=== PATIENT | male | born 1985 | race Caucasian/White ===

== ENCOUNTER 2016-05-26 06:58 | Emergency (ER) | payer OTHER ==
[2016-05-26 07:17] VITALS: BMI 29.5
--- NOTE | 2016-05-26 07:54 | PDOC ---
History of Present Illness - General Chief Complaint: Rash Stated Complaint: ALLERGIC REACTION Time Seen by Provider: 05/26/16 07:43 History Source: Patient - History of Present Illness Initial Comments: 05/26/16 08:54 Mr. Horowitz is a 31-year-old male with past medical history of bipolar depression presenting to the ED today complaining of a rash on his scrotum 3 months. Patient states that the rash initially began on his butt. He saw dermatology at that time. It is now spread into his scrotum and his foreskin. Patient states that the rash is very itchy and painful. He is tried using permethrin, betamethasone, and mometasone with minimal relief. Patient states that there was no biopsy done of his rash. Patient denies history of STDs. Denies new sexual partners. Patient states that he has a new girlfriend has not had relations. Denies discharge from the penis, dysuria, hematuria, frequency. Patient denies fevers chills, cough, runny nose, chest pain, shortness of breath , nausea, vomiting, diarrhea. Past History - Past Medical History Allergies/Adverse Reactions: Allergies Allergy/AdvReac Type Severity Reaction Status Date / Time No Known Allergies Allergy Verified 05/26/16 07:07 Home Medications: Ambulatory Orders Betamethasone/Propylene Glyc [Betamethasone Dp Aug 0.05% Crm] 1 applic TP DAILY 05/26/16 Mometasone Furoate 0.1% Tp Lot [Elocon (Nf)] 1 applic NR DAILY 05/26/16 Permethrin 5% Topical Cream [Elimite -] 1 applic TP DAILY 05/26/16 Other medical history: denies - Psycho/Social/Smoking Cessation Hx Suicidal Ideation: No Smoking History: Never smoked *Physical Exam - Vital Signs Last Vital Signs Temp Pulse Resp BP Pulse Ox 98.5 F 74 18 121/75 97 05/26/16 07:08 05/26/16 07:08 05/26/16 07:08 05/26/16 07:08 05/26/16 07:08 - Physical Exam Comments: 05/26/16 08:55 GENERAL: Well developed, well nourished. Awake and alert. No acute distress. HEENT: Normocephalic, atraumatic. PERRLA, EOMI. No conjunctival pallor. Sclera are non- icteric. Moist mucous membranes. Oropharynx is clear. NECK: Supple. Full ROM. No JVD. Carotid pulses 2+ and symmetric, without bruits. No thyromegaly. No lymphadenopathy. CARDIOVASCULAR: Regular rate and rhythm. No murmurs, rubs, or gallops. Distal pulses are 2+ and symmetric. PULMONARY: No evidence of respiratory distress. Lungs clear to auscultation bilaterally. No wheezing, rales or rhonchi. ABDOMINAL: Soft. Non-tender. Non-distended. No rebound or guarding. No organomegaly. Normoactive bowel sounds. MUSCULOSKELETAL Normal range of motion at all joints. No bony deformities or tenderness. No CVA tenderness. EXTREMITIES: No cyanosis. No clubbing. No edema. No calf tenderness. SKIN: Papular rash along the scrotum, foreskin, b/l medial thighs. Excoriation present along some papules. No umbilications of the papules noted. Warm and dry. Normal capillary refill. No jaundice. NEUROLOGICAL: Alert, awake, appropriate. Cranial nerves 2-12 intact. No deficits to light touch and temperature in face, upper extremities and lower extremities. No motor deficits in the in face, upper extremities and lower extremities. Normoreflexic in the upper and lower extremities. Normal speech. Toes are down- going bilaterally. Gait is normal without ataxia. PSYCHIATRIC: Cooperative. Good eye contact. Appropriate mood and affect Medical Decision Making - Medical Decision Making 05/26/16 09:00 Mr. Horowitz is a 31-year-old male with past medical history of bipolar depression presenting to the ED with a rash of his genitalia 3 months. Given the distribution and look of the papules appears to be warty in nature. Patient is requesting STD testing this time. We'll do full STD panel. We'll refer back to dermatology. We'll also give Benadryl for the pruitits. 05/26/16 10:52 HIV testing is negative at this time. Pt. is reporting relief of his itching with Benadryl. Will discharge home with dermatology follow up. *DC/Admit/Observation/Transfer Diagnosis at time of Disposition: Warts, genital - Discharge Dispostion Admit: No - Referrals Referrals: Reshma Hinson MD [Staff Physician] - - Patient Instructions Printed Discharge Instructions: DI for Genital Warts Additional Instructions: Your rash is most likely genital warts. You were given benadryl today to help with the itching. We also did a full STD work up. Call back in 3 days for the results. You may need to come back to the ER to get the results as they are not always given over the phone. Follow up with your insights strategist Reshma Hinson. Her phone number is . You may need a skin biopsy at this time. You may continue to take benadryl before you go to bed to help with the itching and to help you sleep. Return to the ED if you develop new fevers or chills.
[2016-05-26] MEDS ORDERED: diphenhydrAMINE HCL 25 MG CAPSULE (FP) PO ONE ×2 (08:29→08:41)
[2016-05-26 09:33] LABS: HIV 1 & 2 AB NEGATIVE; HIV 1 AGp24 NEGATIVE
--- NOTE | 2016-05-26 09:42 | PDOC ---
*Physical Exam - Vital Signs Last Vital Signs Temp Pulse Resp BP Pulse Ox 98.5 F 74 18 121/75 97 05/26/16 07:08 05/26/16 07:08 05/26/16 07:08 05/26/16 07:08 05/26/16 07:08 ED Treatment Course - Medications Given in the ED: ED Medications Discontinued Medications Generic Name Dose Route Start Last Admin Trade Name Barbara PRN Reason Stop Dose Admin Diphenhydramine HCl 50 mg 05/26/16 08:29 05/26/16 08:45 Benadryl - PO 05/26/16 08:30 50 mg ONCE ONE Administration Medical Decision Making - Medical Decision Making 05/26/16 09:41 Patient seen and evaluated with the nurse practitioner. I agree with the overall evaluation, assessment, and management with the following summary of visit: 31-year-old male with no severe past medical history presents with progressive perineal rash over the last 3 months, not responding to steroid creams prescribed by dermatology. Symptoms seemed to have started after having intercourse with his ex-girlfriend after she took a trip. Exam appears to be most consistent with genital warts, will require further dermatology evaluation, we'll perform full STI workup. *DC/Admit/Observation/Transfer Diagnosis at time of Disposition: Warts, genital - Referrals Referrals: Reshma Hinson MD [Staff Physician] - - Patient Instructions Printed Discharge Instructions: DI for Genital Warts Additional Instructions: Your rash is most likely genital warts. You were given benadryl today to help with the itching. We also did a full STD work up. Call back in 3 days for the results. You may need to come back to the ER to get the results as they are not always given over the phone. Follow up with your coning machine operator Reshma Hinson. Her phone number is . You may continue to take benadryl before you go to bed to help with the itching and to help you sleep. Return to the ED if you develop new fevers or chills. - Post Discharge Activity
[2016-05-26 09:46] LABS: URINE APPEARANCE CLEAR; URINE BILIRUBIN NEGATIVE (NEGATIVE); URINE BLOOD NEGATIVE (NEGATIVE); URINE COLOR LTYELLOW; URINE GLUCOSE (UA) NEGATIVE (NEGATIVE); URINE KETONE NEGATIVE (NEGATIVE); URINE LEUK ESTERASE NEGATIVE (NEGATIVE); URINE NITRITE NEGATIVE (NEGATIVE); URINE PROTEIN NEGATIVE (NEGATIVE); URINE UROBILINOGEN NEGATIVE E.U./dl (0.2-1.0)
[2016-05-26 11:12] VITALS: BP 140/81; PULSE 81; TEMP 98
[2016-05-28 00:07] LABS: HEP B SURFACE AB Non Reactive (.)
--- NOTE | 2016-05-31 15:14 | PDOC ---
Patient Follow-up (Call Back) - Post ED Follow - Up Disposition at time of original discharge: HOME Reason for Call Back: Abnwl. Microbiology (HEP A AB+ Pt called and informed. No current sxs suggestive of acute hepA infection and pt fells well. STD testign neg. Pt to f/u with PMD as needed)
== END 2016-05-26 11:10 | disposition home or self-care (01) ==
LOC: JER 06:58
DX: A63.0 Anogenital (venereal) warts (principal); F31.9 Bipolar disorder, unspecified
CPT/HCPCS: 36415; 81003; 86593; 86704; 86706; 86708; 87340; 87389; 87491; 87591; 99282-25

== ENCOUNTER 2016-06-10 12:15 | Emergency (ER) | payer OTHER ==
[2016-06-10 12:24] VITALS: BP 155/82; PULSE 84; TEMP 98.1; BMI 28.2
--- NOTE | 2016-06-10 13:21 | PDOC ---
History of Present Illness - General Chief Complaint: Itching Stated Complaint: REACTION Time Seen by Provider: 06/10/16 12:25 History Source: Patient Exam Limitations: No Limitations - History of Present Illness Initial Comments: CHIEF COMPLAINT: 31 y/o afebrile male c/o itchy rash to groin area that's worse at night. HISTORY OF PRESENT ILLNESS: The patient has seen a general store manager, another doctor , and has come to the ER. He was eventually diagnosed with scabies and was treated with 1 day of topical cream and 1 day of ivermectin pills. He states the rash and itching has not subsided. Vital signs on arrival are within normal limits. REVIEW OF SYSTEMS: GENERAL/CONSTITUTIONAL: No fever/chills. No weakness. No weight change. HEAD, EYES, EARS, NOSE AND THROAT: No change in vision. No ear pain or discharge. No sore throat. MUSCULOSKELETAL: No joint or muscle swelling or pain. No neck or back pain. SKIN: +itchy groin rash that is worse at night NEUROLOGIC: No headache, vertigo, loss of consciousness, or loss of sensation. PHYSICAL EXAM GENERAL: The patient is awake, alert, and fully oriented, in no acute distress. HEAD: Normal with no signs of trauma. EYES: Pupils equal, round and reactive to light, extraocular movements intact, sclera anicteric, conjunctiva clear. EXTREMITIES: Normal range of motion, no edema. NEUROLOGICAL: Normal speech, normal gait. PSYCH: Normal mood, normal affect. SKIN: copious erythematous raised bumps on inner thighs, testicles, shaft of penis and superior groin area. Some are crusted Past History - Past Medical History Allergies/Adverse Reactions: Allergies Allergy/AdvReac Type Severity Reaction Status Date / Time No Known Allergies Allergy Verified 06/10/16 12:21 Home Medications: Ambulatory Orders Ivermectin [Stromectol [NF] -] 20 mg PO ONCE #35 tablet 06/10/16 Permethrin 5% Topical Cream [Elimite -] 1 applic TP DAILY #10 tube 06/10/16 - Psycho/Social/Smoking Cessation Hx Anxiety: No Suicidal Ideation: No Smoking History: Never smoked Have you smoked in the past 12 months: No Information on smoking cessation initiated: No Hx Alcohol Use: No Drug/Substance Use Hx: No Substance Use Type: None *Physical Exam - Vital Signs Last Vital Signs Temp Pulse Resp BP Pulse Ox 98.1 F 84 18 155/82 100 06/10/16 12:21 06/10/16 12:21 06/10/16 12:21 06/10/16 12:21 06/10/16 12:21 Medical Decision Making - Medical Decision Making A/P: 31 y/o male with scabies that has not responded to first treatment. He knows he got the scabies from his ex girlfriend who also had it and completed treatment. will send rx for permethrin cream and ivermectin PO to pharmacy. Instructed him to use the cream every day for 7 days and twice a week after until resolved. Pt was instructed to take pills on days 1,2,8,9 and 15 of cream. He was also instructed to follow up with his general store manager within 1 week. The patient verbalizes understanding of all instructions, has no further questions and is awaiting discharge. *DC/Admit/Observation/Transfer Diagnosis at time of Disposition: Scabies - Prescriptions Prescriptions: Permethrin 5% Topical Cream [Elimite -] 1 applic TP DAILY #10 tube Ivermectin [Stromectol [NF] -] 20 mg PO ONCE #35 tablet - Patient Instructions Printed Discharge Instructions: DI for Scabies Additional Instructions: Discharge Instructions: -Take medication as prescribed -Follow up with Dr. Hinson as soon as possible -Return to the ER with any worsening or concerning symptoms
== END 2016-06-10 13:25 | disposition home or self-care (01) ==
LOC: JERFT 12:15
DX: B86 Scabies (principal)
CPT/HCPCS: 99281-25

== ENCOUNTER 2016-06-11 00:23 | Emergency (ER) | payer OTHER ==
[2016-06-11 00:27] VITALS: BP 119/68; PULSE 89; TEMP 97.6; BMI 26.6
[2016-06-11] MEDS ORDERED: RANITIDINE HCL 150 MG TABLET (FP) PO ONE (00:38)
[2016-06-11] MEDS ORDERED: ACETAMINOPHEN 325 MG TABLET (FP) PO ONE (00:38)
[2016-06-11] MEDS ORDERED: diphenhydrAMINE HCL 25 MG CAPSULE (FP) PO ONE ×2 (00:38→00:44)
[2016-06-11] MEDS ORDERED: RANITIDINE HCL 150 MG TABLET (FP) ONE (00:44)
--- NOTE | 2016-06-11 00:53 | PDOC ---
History of Present Illness - General History Source: Patient, Old Records Exam Limitations: No Limitations - History of Present Illness Initial Comments: 06/11/16 00:54 31-year-old male with no past medical history returns back to the emergency department for itchiness. The patient was seen yesterday and diagnosed with scabies. He had taken and used the permethrin cream today and knows that he was increasingly more itchy. He had taken Atarax but itching persisted. He called 911 and ambulance and brought the patient to the ED. <Mak Matias - Last Filed: 06/11/16 00:54> - General History Source: Patient, Old Records Exam Limitations: No Limitations <Lamont Ruiz - Last Filed: 06/11/16 01:18> - General Chief Complaint: Itching Stated Complaint: ITCHING Time Seen by Provider: 06/11/16 00:38 Past History <Mak Matias - Last Filed: 06/11/16 00:54> - Psycho/Social/Smoking Cessation Hx Anxiety: No Suicidal Ideation: No Smoking History: Never smoked Have you smoked in the past 12 months: No Information on smoking cessation initiated: No Hx Alcohol Use: No Drug/Substance Use Hx: No Substance Use Type: None <Lamont Ruiz - Last Filed: 06/11/16 01:18> - Past Medical History Allergies/Adverse Reactions: Allergies Allergy/AdvReac Type Severity Reaction Status Date / Time No Known Allergies Allergy Verified 06/11/16 00:25 Home Medications: Ambulatory Orders Ivermectin [Stromectol [NF] -] 20 mg PO ONCE #35 tablet 06/10/16 Permethrin 5% Topical Cream [Elimite -] 1 applic TP DAILY #10 tube 06/10/16 Diphenhydramine HCl [Benadryl -] 25 mg PO Q6H PRN #20 capsule 06/11/16 Prednisone [Deltasone -] 20 mg PO DAILY #4 tablet 06/11/16 Ranitidine HCl [Zantac] 150 mg PO BID PRN #14 tablet 06/11/16 Review of Systems - Review of Systems Able to Perform ROS?: Yes Comments:: 06/11/16 00:53 GENERAL/CONSTITUTIONAL: No fever or chills. No weakness. HEAD, EYES, EARS, NOSE AND THROAT: No change in vision. No ear pain or discharge. No sore throat. CARDIOVASCULAR: No chest pain or shortness of breath. RESPIRATORY: No cough, wheezing, or hemoptysis. GASTROINTESTINAL: No nausea, vomiting, diarrhea or constipation. GENITOURINARY: No dysuria, frequency, or change in urination. MUSCULOSKELETAL: No joint or muscle swelling or pain. No neck or back pain. SKIN: (+) Itchyness NEUROLOGIC: No headache, vertigo, loss of consciousness, or change in strength/ sensation. ENDOCRINE: No increased thirst. No abnormal weight change. HEMATOLOGIC/LYMPHATIC: No anemia, easy bleeding, or history of blood clots. ALLERGIC/IMMUNOLOGIC: No hives or skin allergy. <Mak Matias - Last Filed: 06/11/16 00:54> *Physical Exam - Vital Signs Last Vital Signs Temp Pulse Resp BP Pulse Ox 97.6 F 89 20 119/68 99 06/11/16 00:25 06/11/16 00:25 06/11/16 00:25 06/11/16 00:25 06/11/16 00:25 - Physical Exam Comments: 06/11/16 00:54 GENERAL: Awake, alert, and fully oriented, in no acute distress HEAD: No signs of trauma EYES: PERRLA, EOMI, sclera anicteric, conjunctiva clear ENT: Auricles normal inspection, hearing grossly normal, nares patent, oropharynx clear without exudates. Moist mucosa NECK: Normal ROM, supple, no lymphadenopathy, JVD, or masses LUNGS: Breath sounds equal, clear to auscultation bilaterally. No wheezes, and no crackles HEART: Regular rate and rhythm, normal S1 and S2, no murmurs, rubs or gallops ABDOMEN: Soft, nontender, normoactive bowel sounds. No guarding, no rebound. No masses EXTREMITIES: Normal range of motion, no edema. No clubbing or cyanosis. No cords, erythema, or tenderness NEUROLOGICAL: (+) Cranial nerves II through XII grossly intact. Normal speech, normal gait SKIN: copious erythematous raised bumps on inner thighs, testicles, shaft of penis and superior groin area. Some are crusted <Mak Matias - Last Filed: 06/11/16 00:54> - Vital Signs Last Vital Signs Temp Pulse Resp BP Pulse Ox 97.6 F 89 20 119/68 99 06/11/16 00:25 06/11/16 00:25 06/11/16 00:25 06/11/16 00:25 06/11/16 00:25 <Lamont Ruiz - Last Filed: 06/11/16 01:18> Medical Decision Making - Medical Decision Making 06/11/16 00:51 A portion of this note was documented by scribe services under my direction. I have reviewed the details of the note, within reason, and agree with the documentation with the following case summary and management plan written by me. Patient treated in the ED. Nursing notes are reviewed and incorporated into the medical decision-making. Vital signs reviewed. Peripheral IV access obtained by the nurse, laboratory studies are drawn and sent, reviewed and interpreted by myself. Vital Signs Temp Pulse Resp BP Pulse Ox 97.6 F 89 20 119/68 99 06/11/16 00:25 06/11/16 00:25 06/11/16 00:25 06/11/16 00:25 06/11/16 00:25 31-year-old male with no past medical history returns back to the emergency department for itchiness. The patient was seen yesterday and diagnosed with scabies. He had taken and used the permethrin cream today and knows that he was increasingly more itchy. He had taken Atarax but itching persisted. He called 911 and ambulance and brought the patient to the ED. The itchiness is likely 2/2 to his scabies. I will give Benadryl and Zantac and low dose prednisone and have the patient follow up with his estimate clerk. I discussed the physical exam findings, ancillary test results and final diagnoses with the patient. I answered all of the patient's questions. The patient was satisfied with the care received and felt comfortable with the discharge plan and treatment plan. The patient will call their primary care physician within 24 hours to arrange follow-up and will return to the Emergency Department with any new, persistant or worsening symptoms. <Lamont Ruiz - Last Filed: 06/11/16 01:18> *DC/Admit/Observation/Transfer - Attestations Scribe Attestion: 06/11/16 00:54 Documentation prepared by Mak Matias, acting as faculty i on call medical assistant for Lamont Ruiz MD. <Mak Matias - Last Filed: 06/11/16 00:54> - Discharge Dispostion Admit: No <Lamont Ruiz - Last Filed: 06/11/16 01:18> Diagnosis at time of Disposition: Itching - Discharge Dispostion Disposition: HOME Condition at time of disposition: Stable - Prescriptions Prescriptions: Diphenhydramine HCl [Benadryl -] 25 mg PO Q6H PRN #20 capsule PRN Reason: Itching Prednisone [Deltasone -] 20 mg PO DAILY #4 tablet Ranitidine HCl [Zantac] 150 mg PO BID PRN #14 tablet PRN Reason: Itching - Referrals Referrals: Reshma Hinson MD [Staff Physician] - - Patient Instructions Printed Discharge Instructions: DI for Itching Additional Instructions: Take 25 mg benadryl every 6 hours and/or 150 mg zantac every 12 hours as needed for itching. Take 20 mg prednisone daily for the next 4 days. Follow up with the estimate clerk.
[2016-06-11] MEDS ORDERED: predniSONE 20 MG TABLET (UD) PO ONE (01:12)
[2016-06-11] MEDS ORDERED: ACETAMINOPHEN 325 MG TABLET (FP) ONE (01:13)
[2016-06-11] MEDS ORDERED: predniSONE 10 MG TABLET (UD) ONE (01:14)
== END 2016-06-11 01:40 | disposition home or self-care (01) ==
LOC: JER 00:23
DX: L29.9 Pruritus, unspecified (principal)
CPT/HCPCS: 99282-25